=== PATIENT | female | born 1975 | race Caucasian/White ===

== ENCOUNTER 2016-12-04 08:13 | Emergency (ER) | payer MEDICAID, SELFPAY ==
--- NOTE | 2016-12-04 09:10 | ERRECORD ---
[facility] EMERGENCY RECORD HPI BACK (08:45 BPIC) CHIEF COMPLAINT: Patient presents for evaluation of pain, to the lower back. HISTORIAN: History provided by patient. MECHANISM OF INJURY: No apparent mechanism of injury. LOCATION: Symptoms are generalized. QUALITY: Pain is dull in nature. SEVERITY: Maximum severity of symptoms moderate, Currently symptoms are moderate. TIME COURSE: Gradual onset of symptoms. ASSOCIATED WITH: No associated symptoms. EXACERBATED BY: Patient's condition exacerbated by nothing. RELIEVED BY: Patient's condition relieved by nothing. RISK FACTORS: Risk factors reviewed. ROS (08:45 BPIC) CONSTITUTIONAL: Negative constitutional review of systems. EYES: Negative eye review of systems. ENT: Negative ears, nose, throat review of systems. CARDIOVASCULAR: Negative cardiovascular review of systems. RESPIRATORY: Negative respiratory review of systems. GI: Negative gastrointestinal review of systems. MUSCULOSKELETAL: see hpi. SKIN: Negative skin review of systems. PSYCHIATRIC: Negative psychiatric review of systems. NOTES: All other ROS is negative except as listed in HPI. PAST MEDICAL HISTORY MEDICAL HISTORY: No past medical history, No past medical history, Flu vaccine not up to date. (08:26 SCHI) FEMALE SURGICAL HISTORY: Surgical history of tubal ligation. (08:26 SCHI) PSYCHIATRIC HISTORY: Notes: DENIES, Notes: DENIES. (08:26 SCHI) SOCIAL HISTORY: Patient drinks socially, Patient denies drug use, Patient is a former tobacco user, smoked cigarettes, Patient quit smoking in the past year, Patient denies alcohol use, Patient denies drug use, Patient is a former tobacco user, smoked cigarettes, Patient quit smoking in the past year. (08:26 SCHI) NOTES: I have reviewed and agree with the PMH/PSxH/FamHx/SocHx obtained by the nurse. (08:45 BPIC) KNOWN ALLERGIES No Known Drug Allergies CURRENT MEDICATIONS (08:25 SCHI) None VITAL SIGNS (08:23 SCHI) VITAL SIGNS: BP: 107/67, Pulse: 64, Resp: 20, Temp: 98.3 (Oral), &a-1R&a+25V*p+0X*[id number]*c202B*c15G*c2P*p-0X&a-25V&a+1R Name: Jacquelin Emanuel Karen : 1975 F41 MedRec: [id number] AcctNum: [id number] Prepared: FriDec 04, 2016 13:46 by Interface Page 1 of 3 pMD [facility] EMERGENCY RECORD Pain: 9 (Constant), O2 sat: 98 on Room Air, Time: 12/04/2016 08:23. PHYSICAL EXAM (08:45 BPIC) CONSTITUTIONAL: Vital signs reviewed, Patient afebrile, Pulse normal, Blood pressure normal, Respiratory rate normal, Patient appears non toxic, Patient appears pain free, Patient alert and oriented to person, place and time. HEAD: Head exam included findings of head atraumatic, normocephalic. EYES: Eye exam included findings of eyelids normal to inspection, Pupils equally round and reactive to light, Extraocular muscles intact. ENT: ENT exam normal. NECK: Neck exam included findings of normal range of motion, Trachea midline. RESPIRATORY CHEST: Respiratory exam included findings of no respiratory distress, Breath sounds clear, Chest exam included findings of chest movement symmetrical, Chest expansion equal. CARDIOVASCULAR: Cardiovascular exam included findings of heart rate regular rate and rhythm, Heart sounds normal. BACK: Back exam, Back exam included findings of normal inspection, Tenderness, paraspinal to the lower back, Straight leg raise. LOWER EXTREMITY: Lower extremity exam included findings of inspection normal, Motor strength normal, Posterior tibial pulse normal. NEURO: Neuro exam findings include patient oriented to person, place and time, Speech normal. PSYCHIATRIC: Psychiatric exam included findings of patient oriented to person place and time, Normal affect. DOCTOR NOTES (08:45 BPIC) TEXT: I discussed the diagnosis with the patient prior to discharge. All questions were answered. There is no indication for admission currently and the patient will follow up with his primary care physician. Any pertinent labs or imaging was reviewed and dicussed with the patient. If any new or emergent symptoms occure, the patient will return to the emergency department. PROBLEM LIST No recorded problems DIAGNOSIS (08:45 BPIC) FINAL: PRIMARY: Low back pain. PRESCRIPTION (08:45 BPIC) Flexeril: TABLET : 5 mg : ORAL : Quantity: 5 Unit: mg Route: ORAL Schedule: every 8 hours PRN Dispense: 30 Unit: tab(s) May substitute. Refills: No Refills . &a-1R&a+25V*p+0X*f0186W*c202B*c15G*c2P*p-0X&a-25V&a+1R Name: Jacquelin Emanuel : 1975 F41 MedRec: [id number] AcctNum: [id number] Prepared: FriDec 04, 2016 13:46 by Interface Page 2 of 3 pMD [facility] EMERGENCY RECORD NOTES: No Refills. traMADol: TABLET : 50 mg : ORAL : Quantity: 50 Unit: mg Route: ORAL Schedule: every 6 hours PRN Dispense: 20 Unit: tab(s) May substitute. Refills: No Refills . NOTES: ^s=No Refills No Refills. DISPOSITION PATIENT: Disposition Type: Discharge, Disposition: *Discharge Home, Condition: Good. (08:45 BPIC) Patient left the department. (09:02 TRIST[facility]) Rojo: BPIC=MD Louie, Irwin HUDSON=SAV Malone, inda &a-1R&a+25V*p+0X*z3717H*c202B*c15G*c2P*p-0X&a-25V&a+1R Name: Jacquelin Emanuel : 1975 F41 MedRec: [id number] AcctNum: [id number] Prepared: FriDec 04, 2016 13:46 by Interface Page 3 of 3 pMD MTDD
--- NOTE | 2016-12-04 09:15 | PICIS ---
[facility] EMERGENCY RECORD TRIAGE (FriDec 04, 2016 08:24 SCHI) TRIAGE NOTES: LOWER BACK PAIN FOR 3 DAYS. (FriDec 04, 2016 08:24 SCHI) PATIENT: NAME: Jacquelin Emanuel, AGE: 41, GENDER: female, : Fri1975, TIME OF GREET: FriDec 04, 2016 08:13, PREFERRED LANGUAGE: Yi, ETHNICITY: Not or , FALL RISK: NO, ECODE BILLING MAP: [facility], SSN: [id number], Zip Code: [address], KG WEIGHT: 68.04, PHONE: , , , PERSON ID: [id number], PCP: DO Man Hillary. (FriDec 04, 2016 08:24 SCHI) COMPLAINT: LOWER BACK PAIN. (FriDec 04, 2016 08:24 SCHI) ADMISSION: URGENCY: 4 Non Urgent, ADMISSION SOURCE: Doctor's Office, TRANSPORT: Walk-in, BED: ED -03. (FriDec 04, 2016 08:24 SCHI) ASSESSMENT: Assessment: ALERT AND ORIENTED X 4, SKIN WARM AND DRY RESP EVEN AND UNLABORED,, Symptoms began 3 DAYS. (08:26 SCHI) PAIN: Patient complains of pain described as, aching, sharp, on a scale 0-10 patient rates pain as 9, Location RIGHT LOWER BACK, Pain is constant. (08:26 SCHI) TRIAGE SCREENING: Patient denies suicidal ideation, Patient denies presence of domestic violence. (08:26 SCHI) LMP: Last menstrual period: 11/26/2016. (08:26 SCHI) PROVIDERS: TRIAGE NURSE: Leslie Malone RN. (FriDec 04, 2016 08:24 SCHI) VITAL SIGNS: BP 107/67, Pulse 64, Resp 20, Temp 98.3, (Oral), Pain 9, (Constant), O2 Sat 98, on Room Air, Time 12/04/2016 08:23. (08:23 SCHI) KNOWN ALLERGIES No Known Drug Allergies CURRENT MEDICATIONS (08:25 SCHI) None VITAL SIGNS (08:23 SCHI) VITAL SIGNS: BP: 107/67, Pulse: 64, Resp: 20, Temp: 98.3 (Oral), Pain: 9 (Constant), O2 sat: 98 on Room Air, Time: 12/04/2016 08:23. NURSING ASSESSMENT: BACK (08:30 SCHI) CONSTITUTIONAL: Patient arrives ambulatory, Gait steady, History obtained from patient, Patient appears comfortable, Patient cooperative, Patient alert, Oriented to person, place and time, Skin warm, Skin dry, Skin normal in color, Mucous membranes pink, Mucous membranes moist, Patient is well-groomed, Patient complains of LOW BACK PAIN, DENIES INJURY OR URINARY PROBLEMS. PAIN: to the lower back, constant, on a scale 0-10 patient rates pain as 9, TOOK ALEEVE, IBUPROFEN YESTERDAY, Pain exacerbated by, posture change. BACK: Back assessment findings include tenderness to, &a-1R&a+25V*p+0X*l5995T*c202B*c15G*c2P*p-0X&a-25V&a+1R Name: Jacquelin Emanuel : 1975 F41 MedRec: [id number] AcctNum: [id number] Prepared: FriDec 04, 2016 13:53 by Interface Page 1 of 5 pMD [facility] EMERGENCY RECORD the right lower back. NOTES: Emotional support needed and given, Patient tolerated procedure well. SAFETY: Side rails up, Cart/Stretcher in lowest position, Hospital ID band on. NURSING PROCEDURE: DISCHARGE NOTE (09:00 SCHI) DISCHARGE: Patient discharged to home, ambulating without assistance, driving self, unaccompanied, Summary of Care printed/ provided, Patient requested and was provided an electronic copy of Discharge Instructions, Transition record given to patient, Discharge instructions given to patient, Simple or moderate discharge teaching performed, Prescriptions given and instructions on side effects given, Medication reconciliation form given, Above person(s) verbalized understanding of discharge instructions and follow-up care, Patient treated and evaluated by physician. BELONGINGS: Belongings and valuables with patient at time of discharge include:, Belongings remain with patient, Valuables remain with patient. NOTES: Emotional support needed and given, Patient tolerated procedure well. Notes: PT IMPROVED, PT ENCOURAGED TO RETURN TO ER WITH NEW OR WORSENING SYMPTOMS. SAFETY: Side rails up, Cart/Stretcher in lowest position, Family at bedside, Hospital ID band on. HPI BACK (08:45 BPIC) CHIEF COMPLAINT: Patient presents for evaluation of pain, to the lower back. HISTORIAN: History provided by patient. MECHANISM OF INJURY: No apparent mechanism of injury. LOCATION: Symptoms are generalized. QUALITY: Pain is dull in nature. SEVERITY: Maximum severity of symptoms moderate, Currently symptoms are moderate. TIME COURSE: Gradual onset of symptoms. ASSOCIATED WITH: No associated symptoms. EXACERBATED BY: Patient's condition exacerbated by nothing. RELIEVED BY: Patient's condition relieved by nothing. RISK FACTORS: Risk factors reviewed. ROS (08:45 BPIC) CONSTITUTIONAL: Negative constitutional review of systems. EYES: Negative eye review of systems. ENT: Negative ears, nose, throat review of systems. CARDIOVASCULAR: Negative cardiovascular review of systems. RESPIRATORY: Negative respiratory review of systems. GI: Negative gastrointestinal review of systems. MUSCULOSKELETAL: see hpi. SKIN: Negative skin review of systems. PSYCHIATRIC: Negative psychiatric review of systems. &a-1R&a+25V*p+0X*f4025M*c202B*c15G*c2P*p-0X&a-25V&a+1R Name: Jacquelin Emanuel : 1975 F41 MedRec: [id number] AcctNum: [id number] Prepared: FriDec 04, 2016 13:53 by Interface Page 2 of 5 pMD [facility] EMERGENCY RECORD NOTES: All other ROS is negative except as listed in HPI. PAST MEDICAL HISTORY MEDICAL HISTORY: No past medical history, No past medical history, Flu vaccine not up to date. (08:26 SCHI) FEMALE SURGICAL HISTORY: Surgical history of tubal ligation. (08:26 SCHI) PSYCHIATRIC HISTORY: Notes: DENIES, Notes: DENIES. (08:26 SCHI) SOCIAL HISTORY: Patient drinks socially, Patient denies drug use, Patient is a former tobacco user, smoked cigarettes, Patient quit smoking in the past year, Patient denies alcohol use, Patient denies drug use, Patient is a former tobacco user, smoked cigarettes, Patient quit smoking in the past year. (08:26 SCHI) NOTES: I have reviewed and agree with the PMH/PSxH/FamHx/SocHx obtained by the nurse. (08:45 BPIC) PHYSICAL EXAM (08:45 BPIC) CONSTITUTIONAL: Vital signs reviewed, Patient afebrile, Pulse normal, Blood pressure normal, Respiratory rate normal, Patient appears non toxic, Patient appears pain free, Patient alert and oriented to person, place and time. HEAD: Head exam included findings of head atraumatic, normocephalic. EYES: Eye exam included findings of eyelids normal to inspection, Pupils equally round and reactive to light, Extraocular muscles intact. ENT: ENT exam normal. NECK: Neck exam included findings of normal range of motion, Trachea midline. RESPIRATORY CHEST: Respiratory exam included findings of no respiratory distress, Breath sounds clear, Chest exam included findings of chest movement symmetrical, Chest expansion equal. CARDIOVASCULAR: Cardiovascular exam included findings of heart rate regular rate and rhythm, Heart sounds normal. BACK: Back exam, Back exam included findings of normal inspection, Tenderness, paraspinal to the lower back, Straight leg raise. LOWER EXTREMITY: Lower extremity exam included findings of inspection normal, Motor strength normal, Posterior tibial pulse normal. NEURO: Neuro exam findings include patient oriented to person, place and time, Speech normal. PSYCHIATRIC: Psychiatric exam included findings of patient oriented to person place and time, Normal affect. EVENTS TRANSFER: Triage to Emergency Main ED -03. (FriDec 04, 2016 08:24 SCHI) &a-1R&a+25V*p+0X*n1726R*c202B*c15G*c2P*p-0X&a-25V&a+1R Name: Jacquelin Emanuel : 1975 F41 MedRec: [id number] AcctNum: [id number] Prepared: FriDec 04, 2016 13:53 by Interface Page 3 of 5 pMD [facility] EMERGENCY RECORD Removed from Emergency Main ED -03. (09:02 SCHI) DOCTOR NOTES (08:45 BPIC) TEXT: I discussed the diagnosis with the patient prior to discharge. All questions were answered. There is no indication for admission currently and the patient will follow up with his primary care physician. Any pertinent labs or imaging was reviewed and dicussed with the patient. If any new or emergent symptoms occure, the patient will return to the emergency department. PROBLEM LIST No recorded problems DIAGNOSIS (08:45 BPIC) FINAL: PRIMARY: Low back pain. DISPOSITION PATIENT: Disposition Type: Discharge, Disposition: *Discharge Home, Condition: Good. (08:45 BPIC) Patient left the department. (09:02 SCHI) INSTRUCTION (08:45 BPIC) DISCHARGE: LOW BACK PAIN GENERAL. FOLLOWUP: DO Man Hillary, [facility], [address] [place] [id number], . SPECIAL: Please follow up with your physician in the next 2-3 days. Return to the Emergency Room with any worsening of your symptoms or other emergent concerns. Thank you for choosing [facility] Emergency Department for your care today, and God Bless You!. PRESCRIPTION (08:45 BPIC) Flexeril: TABLET : 5 mg : ORAL : Quantity: 5 Unit: mg Route: ORAL Schedule: every 8 hours PRN Dispense: 30 Unit: tab(s) May substitute. Refills: No Refills . NOTES: No Refills. traMADol: TABLET : 50 mg : ORAL : Quantity: 50 Unit: mg Route: ORAL Schedule: every 6 hours PRN Dispense: 20 Unit: tab(s) May substitute. Refills: No Refills . NOTES: ^s=No Refills No Refills. [facility] (09:01 [facility] *DISCHARGE INSTRUCTIONS RECEIPT: Image captured from scanner. *SUPPLY CHARGE SHEET: Image captured from scanner. ADMIN DIGITAL SIGNATURE: SAV Malone, Leslie. (09:02 [facility]) &a-1R&a+25V*p+0X*e5705C*c202B*c15G*c2P*p-0X&a-25V&a+1R Name: Jacquelin Emanuel : 1975 F41 MedRec: [id number] AcctNum: [id number] Prepared: FriDec 04, 2016 13:53 by Interface Page 4 of 5 pMD [facility] EMERGENCY RECORD MD Palma Bryan. (13:39 [facility]) Rojo: BPIC=MD Palma Bryan SCHI=SAV Malone Slinda &a-1R&a+25V*p+0X*l5785D*c202B*c15G*c2P*p-0X&a-25V&a+1R Name: Jacquelin Emanuel : 1975 F41 MedRec: [id number] AcctNum: [id number] Prepared: Crystal Dec 04, 2016 13:53 by Interface Page 5 of 5 pMD MTDD
== END 2016-12-04 09:00 | disposition home or self-care (01) ==
LOC: MADERS 08:13
DX: M54.5 Low back pain (principal)
CPT/HCPCS: 99284

== ENCOUNTER 2016-12-05 11:17 | Emergency (ER) | payer MEDICAID, SELFPAY ==
[2016-12-05 11:49] LABS: Bilirubin Negative (Negative); Blood, Urine Negative (Negative); Clarity Clear (Clear); Glucose, Urine (Dipstick) Negative (Negative); Leukocyte Negative (Negative); Nitrite Negative (Negative); Protein, Urine (Dipstick) Negative (Neg-Trace); Specific Gravity, Urine 1.015 (1.005-1.030); Urobilinogen 0.2 mg/dL (0.2-1.0); pH, Urine 7.5 (5.0-9.0)
[2016-12-05 11:50] LABS: Pregnancy Test - Urine (BHCG) NEGATIVE (NEGATIVE); Pregu Control Background? CLEAR/WHITE (CLR/WHITE); Pregu Control Bar Appear? YES (CONTROL BAR); Specific Gravity 1.015 (1.002-1.036)
[2016-12-05 12:26] LABS: #Eosinphils 0.2 thou/uL (0.0-0.7); #Lymphocytes 1.7 thou/uL (1.20-3.40); #Monocytes 0.5 thou/uL (0.11-0.59); #Neutrophils 6.1 thou/uL (1.40-6.50); %Basophils 0.5 % (0.0-1.0); %Eosinophils 1.9 % (0.0-10.0); %Lymphocytes 19.7 % (21.0-51.0); %Monocytes 5.4 % (0.0-10.0); %Neutrophils 72.5 % (42.0-75.0); Hemoglobin 12.9 g/dL (12.0-16.0); Mean Corpuscular HGB CONC 31.6 g/dL (32.0-36.0); Mean Corpuscular Hemoglobin 30.4 pg (27.0-31.0); Mean Corpuscular Volume 96.1 fl (81.0-99.0); Platelet Count 278 thou/uL (130-400); RBC Distribution Width 13.2 % (11.5-14.5); Red Blood Cell (RBC) Count 4.26 mill/uL (4.20-5.40); White Blood Cell (WBC) Count 8.4 thou/uL (4.8-10.8)
[2016-12-05] MEDS ORDERED: Ondansetron HCl/PF 4 MG/2 ML Vial ONE (12:35)
[2016-12-05] MEDS ORDERED: Ketorolac Tromethamine 30 MG/ML VIAL ONE (12:35)
[2016-12-05 12:46] LABS: ALT (SGPT) 7 U/L (0-55); AST (SGOT) 9 U/L (5-34); Albumin 4.4 g/dL (3.5-5.0); Alkaline Phosphatase 55 U/L (40-150); Anion Gap 14 mmol/L (10-20); BUN (Urea Nitrogen) 18 mg/dL (7.0-18.7); Bilirubin, Total Less than 0.3 mg/dL (0.2-1.2); Calc. Creatinine Clearance 0 mL/min (70-130); Calcium 9.6 mg/dL (7.8-10.44); Carbon Dioxide 30 mmol/L (22-29); Chloride 103 mmol/L (98-107); Estimated GFR-MDRD 68; Globulin 2.4 g/dL (2.4-3.5); Glucose 88 mg/dL (70-105); Potassium 4.5 mmol/L (3.5-5.1); Protein, Total 6.8 g/dL (6.0-8.3); Sodium 142 mmol/L (136-145)
[2016-12-05 12:47] LABS: Amylase 42 U/L (25-125); CRP (Inflammatory) Less than 0.50 mg/dL (= or < 0.5); Lipase 24 U/L (8-78)
--- NOTE | 2016-12-05 13:41 | CT ---
CT ABDOMEN AND PELVIS WITH IV AND ORAL CONTRAST: History: Right lower quadrant pain. FINDINGS: The lung bases are clear. A circumscribed 1.6 cm oval low density lesion within the posterior dome of the liver has an essentric hyperdense focus and is favored to represent a small hemangioma. The spleen, kidneys, adrenal glands and pancreas have a normal CT appearance. The appendix is not infla med. There is no evidence of bowel obstruction. Urinary bladder is unremarkable. Follicles arise from each ovary. IMPRESSION: No significant abnormalities are demonstrated. POS: [facility]
--- NOTE | 2016-12-05 14:03 | RAD ---
AP CHEST: History: 41-year-old female with abdominal pain. FINDINGS: PA radiograph of the chest obtained. The lungs are well aerated. No evidence of active intrathorac ic disease seen. No evidence of effusions, pneumonia or pneumothorax seen. IMPRESSION: Unremarkable PA radiograph of the chest. POS: [facility]
--- NOTE | 2016-12-05 15:07 | ERRECORD ---
[facility] EMERGENCY RECORD HPI ABDOMINAL PAIN (12:09 LLDO) CHIEF COMPLAINTS: Patient presents for evaluation of abdominal pain, Patient presents for evaluation of started having r lower back pain 3 days ago. no clear injury (works at [employer]). this morning started having RLQ pain and some nausea. no fever. had some diarrhea 2 days ago but not since. only abdo surgery was tubal. ua this morning was completely negative. HISTORIAN: History provided by patient, drove herself here today to see pcp who sent her to the ed. pcp requested w/u and ct. LOCATION FEMALE: Symptoms are localized. QUALITY: Pain is dull in nature, described as aching. SEVERITY: Maximum severity of symptoms moderate, Currently symptoms are moderate. TIME COURSE: Patient unable to describe onset of symptoms, Symptoms are intermittent. ASSOCIATED WITH FEMALE: No associated recent antibiotic use, No associated bright red blood per rectum, Associated with diarrhea, No associated fever, No associated hematemesis, No associated hematuria, Associated with loss of appetite, No associated melena, No associated nausea, No associated night sweats, No associated trauma, No associated recent travel, No associated urinary tract infection signs or symptoms, No associated vomiting. RELIEVED BY: Patient's condition relieved by nothing. EXACERBATED BY: Patient's condition exacerbated by movement, Patient's condition exacerbated by PALPATION. RISK FACTORS FEMALE: No ectopic risk factors present, No abdominal aortic aneurysm risk factors, No coronary artery disease risk factors. ROS CONSTITUTIONAL: Historian reports fatigue. (12:15 LLDO) EYES: Negative eye review of systems, Historian denies eye pain, denies eye redness, denies eye discharge. (12:19 LLDO) ENT: Negative ears, nose, throat review of systems, Historian denies epistaxis, denies rhinorrhea, denies sinus pain, denies sore throat. (12:19 LLDO) CARDIOVASCULAR: Negative cardiovascular review of systems, Historian denies chest pain, no radiation, Historian denies diaphoresis, denies syncope. (12:19 LLDO) RESPIRATORY: Negative respiratory review of systems, Historian denies cough, denies shortness of breath, denies sputum. (12:19 LLDO) GI: Historian reports abdominal pain, denies anorexia, denies appetite changes, denies constipation, reports diarrhea, denies flatulence, denies hematemesis, denies hematochezia, denies jaundice, denies melena, denies nausea, denies stool changes, denies vomiting. (12:15 LLDO) GENITOURINARY FEMALE: Negative genitourinary review of systems, Historian denies dysuria, denies frequency, denies urgency. (12:19 LLDO) MUSCULOSKELETAL: Negative musculoskeletal review of systems, &a-1R&a+25V*p+0X*[id number]*c202B*c15G*c2P*p-0X&a-25V&a+1R Name: Jacquelin Emanuel : 1975 F41 MedRec: [id number] AcctNum: [id number] Prepared: Bhavna Dec 05, 2016 23:45 by Interface Page 1 of 4 pMD [facility] EMERGENCY RECORD Historian denies arthralgias, denies back pain, denies injury, denies myalgias, denies neck pain. (12:19 LLDO) SKIN: Negative skin review of systems, Historian denies cellulitis, denies rash, denies skin changes, denies skin lesions. (12:19 LLDO) NEUROLOGIC: Negative neurologic review of systems, Historian denies confusion, denies dizziness, denies focal weakness, denies mental status changes. (12:19 LLDO) HEMO/LYMPHATIC: Normal hematologic/lymphatic system review, Historian denies abnormal blood clotting, denies gum bleeding, denies petechiae. (12:19 LLDO) ALLERGIC/IMMUNOLOGIC: Normal allergy/immunologic system review, Historian denies eczema, denies environmental allergies, denies food allergies. (12:19 LLDO) PSYCHIATRIC: Negative psychiatric review of systems, Historian denies alcohol abuse, denies anxiety, denies depression, denies drug abuse, denies hallucinations. (12:19 LLDO) NOTES: All systems reviewed, negative except as described above. (12:15 LLDO) PAST MEDICAL HISTORY MEDICAL HISTORY: No past medical history, No past medical history, Flu vaccine not up to date. (11:35 SCHI) FEMALE SURGICAL HISTORY: Surgical history of tubal ligation. (11:35 SCHI) PSYCHIATRIC HISTORY: Notes: DENIES, Notes: DENIES. (11:35 SCHI) SOCIAL HISTORY: Patient drinks socially, Patient denies drug use, Patient is a former tobacco user, smoked cigarettes, Patient quit smoking in the past year, Patient denies alcohol use, Patient denies drug use, Patient is a former tobacco user, smoked cigarettes, Patient quit smoking in the past year. (11:35 SCHI) NOTES: Nursing records reviewed, Agree with nursing records, Medication list reviewed. (12:19 LLDO) KNOWN ALLERGIES No Known Drug Allergies CURRENT MEDICATIONS (11:32 SCHI) Flexeril: TABLET : Strength - 5 mg : ORAL Patient Dose: 5 mg Oral every 8 hours PRN. traMADol: TABLET : Strength - 50 mg : ORAL Patient Dose: 50 mg Oral every 6 hours PRN. VITAL SIGNS VITAL SIGNS: BP: 120/76, Pulse: 76, Resp: 20, Temp: 98.1 (Tympanic), O2 sat: 97 on Room Air, Time: 12/05/2016 11:29. (11:29 SCHI) &a-1R&a+25V*p+0X*[id number]*c202B*c15G*c2P*p-0X&a-25V&a+1R Name: Jacquelin Emanuel : 1975 F41 MedRec: [id number] AcctNum: [id number] Prepared: Bhavna Dec 05, 2016 23:45 by Interface Page 2 of 4 pMD [facility] EMERGENCY RECORD BP: 129/88, Pulse: 62, O2 sat: 100 on Room Air, Time: 12/05/2016 12:45. (12:45 SCHI) BP: 133/80, Pulse: 56, Resp: 20, O2 sat: 100 on Room Air, Time: 12/05/2016 13:15. (13:15 SCHI) BP: 115/77, Pulse: 62, Resp: 18, O2 sat: 100 on Room Air, Time: 12/05/2016 13:35. (13:35 SCHI) Pain: 8 (Constant), Time: 12/05/2016 11:30. (11:30 SCHI) Pain: 8, Time: 12/05/2016 13:58. (13:58 SCHI) PHYSICAL EXAM CONSTITUTIONAL: Vital Signs Reviewed, Patient afebrile, Pulse normal, Blood pressure normal, Respiratory rate normal, Patient appears, uncomfortable, Patient appears, in moderate pain distress, Patient alert and oriented to person, place and time, Nursing notes reviewed. (12:16 LLDO) HEAD: Head exam normal, Head exam included findings of head atraumatic, normocephalic. (12:19 LLDO) EYES: Eye exam normal, Eye exam included findings of eyelids normal to inspection, Pupils equally round and reactive to light, Extraocular muscles intact. (12:19 LLDO) ENT: ENT exam normal, Ear exam normal, Nose exam normal. (12:19 LLDO) NECK: Neck exam normal, Neck exam included findings of normal range of motion, Trachea midline, no meningeal signs, no tenderness. (12:19 LLDO) RESPIRATORY CHEST: Respiratory exam included findings of no respiratory distress, Breath sounds clear, No wheezing, Chest exam included findings of chest movement symmetrical, Chest expansion equal, no tenderness. (12:16 LLDO) CARDIOVASCULAR: Cardiovascular exam included findings of heart rate regular rate and rhythm, Heart sounds normal, Point of maximal impulse normal. (12:16 LLDO) ABDOMEN FEMALE: Abdominal exam included findings of abdomen tender, to the right lower quadrant, mild intensity, Bowel sounds normal, Liver normal, Spleen normal, no distension, no mass, no pulsatile masses, no peritoneal signs, Rovsing's sign absent, no inguinal hernia, no femoral hernia, no umbilical hernia, no ventral hernia, no incisional hernia. (12:16 LLDO) BACK: Back exam normal, Back exam included findings of normal inspection, range of motion normal. (12:19 LLDO) UPPER EXTREMITY: Upper extremity exam normal, Upper extremity exam included findings of inspection normal, Range of motion normal. (12:19 LLDO) LOWER EXTREMITY: Lower extremity exam normal, Lower extremity exam included findings of inspection normal, Range of motion normal. (12:19 LLDO) NEURO: Neuro exam normal, Neuro exam findings include patient oriented to person, place and time, Speech normal, John coma scale 15. (12:19 LLDO) &a-1R&a+25V*p+0X*[id number]*c202B*c15G*c2P*p-0X&a-25V&a+1R Name: Jacquelin Emanuel : 1975 F41 MedRec: [id number] AcctNum: [id number] Prepared: Bhavna Dec 05, 2016 23:45 by Interface Page 3 of 4 pMD [facility] EMERGENCY RECORD SKIN: Skin exam normal, Skin exam included findings of skin warm, dry, and normal in color, no rash. (12:19 LLDO) PSYCHIATRIC: Psychiatric exam normal, Psychiatric exam included findings of patient oriented to person place and time, Normal affect. (12:19 LLDO) MEDICATION ADMINISTRATION SUMMARY Drug Name: Zofran intravenous, Dose Ordered: 8 mg, Route: IV Push, Status: Given, Time: 12:42 12/05/2016, Drug Name: Bentyl oral, Dose Ordered: 20 mg, Route: Oral, Status: Given, Time: 12:42 12/05/2016, Drug Name: Toradol injection, Dose Ordered: 30 mg, Route: IV Push, Status: Given, Time: 12:42 12/05/2016, Detailed record available in Medication Service section. DOCTOR NOTES (14:17 LLDO) TEXT: ct abdo and general w/u all totally neg. PROBLEM LIST No recorded problems DIAGNOSIS (14:19 LLDO) FINAL: PRIMARY: Lower abdominal pain, ADDITIONAL: Low back pain. PRESCRIPTION (14:21 LLDO) Tylenol-Codeine #3: TABLET : 300 mg-30 mg : ORAL : Quantity: 1-2 Unit: tab(s) Route: ORAL Schedule: every 4 hours prn Dispense: 24 Unit: tab(s) May substitute. Refills: No Refills . NOTES: No Refills. DISPOSITION PATIENT: Disposition Type: Discharge, Disposition: *Discharge Home. (14:19 LLDO) Patient left the department. (14:36 SCHI) Rojo: LLDO=MD Jose, Jaden SCHI=SAV Malone, Slinda &a-1R&a+25V*p+0X*[id number]*c202B*c15G*c2P*p-0X&a-25V&a+1R Name: Jacquelin Emanuel : 1975 F41 MedRec: [id number] AcctNum: [id number] Prepared: Bhavna Dec 05, 2016 23:45 by Interface Page 4 of 4 pMD [facility]
--- NOTE | 2016-12-05 15:21 | PICIS ---
[facility] EMERGENCY RECORD TRIAGE (FriDec 05, 2016 11:31 SCHI) TRIAGE NOTES: BACK PAIN AND RT LOWER QUAD PAIN, WAS SENT OVER FROM CLINIC. (FriDec 05, 2016 11:31 SCHI) PATIENT: NAME: Jacquelin Emanuel, AGE: 41, GENDER: female, : Fri1975, TIME OF GREET: FriDec 05, 2016 11:17, PREFERRED LANGUAGE: Lao, ETHNICITY: Not or , FALL RISK: NO, ECODE BILLING MAP: [facility] ER, SSN: [id number], Zip Code: [address], KG WEIGHT: 69.85, PHONE: , , , PERSON ID: [id number], PCP: DO Man Hillary. (FriDec 05, 2016 11:31 SCHI) COMPLAINT: BACK PAINS. (FriDec 05, 2016 11:31 SCHI) ADMISSION: URGENCY: 3 Urgent, ADMISSION SOURCE: Home, TRANSPORT: Walk-in, BED: ED -03. (FriDec 05, 2016 11:31 SCHI) ASSESSMENT: Assessment: ALERT AND ORIENTED X 4, SKIN WARM AND DRY RESP EVEN AND UNLABORED,, Symptoms began 3 DAYS OR MORE. (11:35 SCHI) PAIN: Patient complains of pain described as, on a scale 0-10 patient rates pain as 10, Location LOW BACK. (11:35 SCHI) TRIAGE SCREENING: Patient denies suicidal ideation, Patient denies presence of domestic violence. (11:35 SCHI) PROVIDERS: TRIAGE NURSE: Leslie Malone RN. (FriDec 05, 2016 11:31 SCHI) VITAL SIGNS: BP 120/76, Pulse 76, Resp 20, Temp 98.1, (Tympanic), O2 Sat 97, on Room Air, Time 12/05/2016 11:29. (11:29 SCHI) PREVIOUS VISIT ALLERGIES: No Known Drug Allergies. (FriDec 05, 2016 11:31 SCHI) No Known Drug Allergies. (11:35 SCHI) KNOWN ALLERGIES No Known Drug Allergies CURRENT MEDICATIONS (11:32 SCHI) Flexeril: TABLET : Strength - 5 mg : ORAL Patient Dose: 5 mg Oral every 8 hours PRN. traMADol: TABLET : Strength - 50 mg : ORAL Patient Dose: 50 mg Oral every 6 hours PRN. VITAL SIGNS VITAL SIGNS: BP: 120/76, Pulse: 76, Resp: 20, Temp: 98.1 (Tympanic), O2 sat: 97 on Room Air, Time: 12/05/2016 11:29. (11:29 SCHI) BP: 129/88, Pulse: 62, O2 sat: 100 on Room Air, Time: 12/05/2016 12:45. (12:45 SCHI) BP: 133/80, Pulse: 56, Resp: 20, O2 sat: 100 on Room Air, Time: 12/05/2016 13:15. (13:15 SCHI) BP: 115/77, Pulse: 62, Resp: 18, O2 sat: 100 on Room Air, Time: 12/05/2016 13:35. (13:35 SCHI) Pain: 8 (Constant), Time: 12/05/2016 11:30. (11:30 SCHI) &a-1R&a+25V*p+0X*j4304L*c202B*c15G*c2P*p-0X&a-25V&a+1R Name: Jacquelin Emanuel : 1975 F41 MedRec: [id number] AcctNum: [id number] Prepared: Bhavna Dec 05, 2016 23:51 by Interface Page 1 of 11 pMD [facility] EMERGENCY RECORD Pain: 8, Time: 12/05/2016 13:58. (13:58 SCHI) NURSING ASSESSMENT: BACK (11:47 SCHI) CONSTITUTIONAL: Patient arrives ambulatory, Gait steady, History obtained from patient, Patient appears comfortable, Patient cooperative, Patient alert, Oriented to person, place and time, Skin warm, Skin dry, Skin normal in color, Mucous membranes pink, Mucous membranes moist, Patient is well-groomed, Patient complains of LOW BACK PAIN. PAIN: aching pain, to the lower back, RT LOWER QUAD, constant, on a scale 0-10 patient rates pain as 10. BACK: Back assessment findings include tenderness to, bilateral lower back. NOTES: Emotional support needed and given, Patient tolerated procedure well. SAFETY: Side rails up, Cart/Stretcher in lowest position, Hospital ID band on. NURSING PROCEDURE: DISCHARGE NOTE (14:30 SCHI) DISCHARGE: Patient discharged to home, ambulating without assistance, driving self, unaccompanied, Summary of Care printed/ provided, Patient requested and was provided an electronic copy of Discharge Instructions, Transition record given to patient, Discharge instructions given to patient, Simple or moderate discharge teaching performed, Prescriptions given and instructions on side effects given, Medication reconciliation form given, Above person(s) verbalized understanding of discharge instructions and follow-up care, Patient treated and evaluated by physician. BELONGINGS: Belongings and valuables with patient at time of discharge include:, Belongings remain with patient, Valuables remain with patient. NOTES: Emotional support needed and given, Patient tolerated procedure well. Notes: PT IMPROVED, PT ENCOURAGED TO RETURN TO ER WITH NEW OR WORSENING SYMPTOMS. SAFETY: Side rails up, Cart/Stretcher in lowest position, Family at bedside, Hospital ID band on. NURSING PROCEDURE: IV PATIENT IDENITIFIER: Patient actively involved in identification process, Patient's identity verified by patient stating name, Patient's identity verified by patient stating date, Patient's identity verified by hospital ID bracelet. (12:00 SCHI) IV SITE 1: IV therapy indicated for hydration, IV therapy indicated for medication administration, IV established, to the right forearm, using a 20 gauge catheter, in one attempt, IV site prepped with chloraprep, Saline lock established, Flushed with normal saline (mls): 10. (12:00 SCHI) FOLLOW-UP SITE 1: IV discontinued, due to patient being &a-1R&a+25V*p+0X*m0748L*c202B*c15G*c2P*p-0X&a-25V&a+1R Name: Jacquelin Emanuel : 1975 F41 MedRec: [id number] AcctNum: [id number] Prepared: [facility] Dec 05, 2016 23:51 by Interface Page 2 of 11 pMD [facility] EMERGENCY RECORD discharged, catheter intact. (14:25 SCHI) NURSING PROCEDURE: NURSE NOTES (13:02 SCHI) NURSES NOTES: Patient assisted to bathroom with steady gait. NURSING PROCEDURE: TRANSPORT TO [facility] PATIENT IDENTIFIER: Patient actively involved in identification process, Patient's identity verified by patient stating name, Patient's identity verified by hospital ID bracelet. (13:11 LWAL) TRANSPORT TO TESTS: Patient transported to CT scan, via wheelchair, Accompanied by x-ray certified composites technician, Notes: pt to drink oral contrast for her exam. (13:11 LWAL) FOLLOW-UP: After procedure, patient returned to emergency department. (13:20 SCHI) ORDER DETAILS Order Name: Amylase, Status: Active, Time: 12:08 12/05/2016, User: LL, - Ordered for: MD Garcia Lloyd, - Entered by: MD Garcia Lloyd - [facility] Dec 05, 2016 12:08, - Quantity: 1, Order Name: CBC with Differential, Status: Active, Time: 12:08 12/05/2016, User: LLDO, - Ordered for: MD Garcia Lloyd, - Entered by: MD Garcia Lloyd - [facility] Dec 05, 2016 12:08, - Quantity: 1, Order Name: Comprehensive Metabolic Panel, Status: Active, Time: 12:08 12/05/2016, User: LLDO, - Ordered for: MD Garcia Lloyd, - Entered by: MD Garcia Lloyd - [facility] Dec 05, 2016 12:08, - Quantity: 1, Order Name: CRP (Inflamatory), Status: Active, Time: 12:08 12/05/2016, User: LLDO, - Ordered for: MD Garcia Lloyd, - Entered by: MD Garcia Lloyd - [facility] Dec 05, 2016 12:08, - Quantity: 1, Order Name: CT Appendix Protocol, Status: Active, Time: 12:08 12/05/2016, User: LLDO, - Ordered for: MD Garcia Lloyd, - Entered by: MD Garcia Lloyd - [facility] Dec 05, 2016 12:08, - Quantity: 1, Order Name: Culture, Urine, Status: Active, Time: 11:42 12/05/2016, User: SCHI, - Ordered for: MD Garcia Lloyd, - Entered by: SAV Malone, Leslie [facility] Dec 05, 2016 11:42, - Quantity: 1, Order Name: Lipase, Status: Active, Time: 12:08 12/05/2016, User: SHANT, - Ordered for: MD Garcia Lloyd, &a-1R&a+25V*p+0X*n3696P*c202B*c15G*c2P*p-0X&a-25V&a+1R Name: Jacquelin Emanuel : 1975 F41 MedRec: [id number] AcctNum: [id number] Prepared: FriDec 05, 2016 23:51 by Interface Page 3 of 11 D [facility] EMERGENCY RECORD - Entered by: MD Garcia Lloyd - Bhavna Dec 05, 2016 12:08, - Quantity: 1, Order Name: Test, Urine (CG), Status: Active, Time: 11:42 12/05/2016, User: TRISTAN, - Ordered for: MD Garcia Lloyd, - Entered by: SAV Malone, Leslie [facility] Dec 05, 2016 11:42, - Quantity: 1, Order Name: SALINE LOCK, Status: Done, Time: 12:12 12/05/2016, User: TRISTAN, - Ordered for: MD Garcia Lloyd, - Entered by: MD Garcia Lloyd - [facility] Dec 05, 2016 12:08, - Quantity: 1, Order Name: Urinalysis w/ Rflx Microscopic, Status: Active, Time: 11:42 12/05/2016, User: TRISTAN, - Ordered for: MD Garcia Lloyd, - Entered by: SAV Malone, [facility] Dec 05, 2016 11:42, - Quantity: 1, Order Name: XR Chest 1 View Portable, Status: Active, Time: 12:08 12/05/2016, User: SHANT, - Ordered for: MD Garcia Lloyd, - Entered by: MD Garcia Lloyd - Bhavna Dec 05, 2016 12:08, - Quantity: 1. MEDICATION ADMINISTRATION SUMMARY Drug Name: Zofran intravenous, Dose Ordered: 8 mg, Route: IV Push, Status: Given, Time: 12:42 12/05/2016, Drug Name: Bentyl oral, Dose Ordered: 20 mg, Route: Oral, Status: Given, Time: 12:42 12/05/2016, Drug Name: Toradol injection, Dose Ordered: 30 mg, Route: IV Push, Status: Given, Time: 12:42 12/05/2016, Detailed record available in Medication Service section. MEDICATION SERVICE (12:42 DO) Bentyl oral: Order: Bentyl oral (dicyclomine HCl) - Dose: 20 mg : Oral Schedule: Now Ordered by: Jaden Garcia MD Entered by: Jaden Garcia MD [facility] Dec 05, 2016 12:21 , Acknowledged by: Leslie Malone RN [facility] Dec 05, 2016 12:34 Documented as given by: Leslie Malone RN [facility] Dec 05, 2016 12:42 Patient, Medication, Dose, Route and Time verified prior to administration. Site: Medication administered P.O., Correct patient, time, route, dose and medication confirmed prior to administration, Patient advised of actions and side-effects prior to administration, Allergies confirmed and medications reviewed prior to administration. Toradol injection: Order: Toradol injection (ketorolac tromethamine) - Dose: 30 mg : IV Push Schedule: Now &a-1R&a+25V*p+0X*n5896S*c202B*c15G*c2P*p-0X&a-25V&a+1R Name: Jacquelin Emanuel : 1975 F41 MedRec: [id number] AcctNum: [id number] Prepared: FriDec 05, 2016 23:51 by Interface Page 4 of 11 [facility] EMERGENCY RECORD Ordered by: Jaden Garcia MD Entered by: Jaden Garcia MD [facility] Dec 05, 2016 12:20 , Acknowledged by: Leslie Malone RN [facility] Dec 05, 2016 12:33 Documented as given by: Leslie Malone RN [facility] Dec 05, 2016 12:42 Patient, Medication, Dose, Route and Time verified prior to administration. IV SITE #1 IVP, subsequent different medication, Catheter placement confirmed via flush prior to administration, IV site without signs or symptoms of infiltration during medication administration, No swelling during administration, No drainage during administration, IV flushed after administration, Correct patient, time, route, dose and medication confirmed prior to administration, Patient advised of actions and side-effects prior to administration, Allergies confirmed and medications reviewed prior to administration. Zofran intravenous: Order: Zofran intravenous (ondansetron HCl) - Dose: 8 mg : IV Push Schedule: Now Ordered by: Jaden Garcia MD Entered by: Jaden Garcia MD [facility] Dec 05, 2016 12:20 , Acknowledged by: Leslie Malone RN [facility] Dec 05, 2016 12:33 Documented as given by: Leslie Malone RN [facility] Dec 05, 2016 12:42 Patient, Medication, Dose, Route and Time verified prior to administration. IV SITE #1 IVP, initial medication, Catheter placement confirmed via flush prior to administration, IV site without signs or symptoms of infiltration during medication administration, No swelling during administration, No drainage during administration, IV flushed after administration, Correct patient, time, route, dose and medication confirmed prior to administration, Patient advised of actions and side-effects prior to administration, Allergies confirmed and medications reviewed prior to administration. HPI ABDOMINAL PAIN (12:09 LLDO) CHIEF COMPLAINTS: Patient presents for evaluation of abdominal pain, Patient presents for evaluation of started having r lower back pain 3 days ago. no clear injury (works at [employer]). this morning started having RLQ pain and some nausea. no fever. had some diarrhea 2 days ago but not since. only abdo surgery was tubal. ua this morning was completely negative. HISTORIAN: History provided by patient, drove herself here today to see pcp who sent her to the ed. pcp requested w/u and ct. LOCATION FEMALE: Symptoms are localized. QUALITY: Pain is dull in nature, described as aching. SEVERITY: Maximum severity of symptoms moderate, Currently symptoms are moderate. TIME COURSE: Patient unable to describe onset of symptoms, Symptoms are intermittent. ASSOCIATED WITH FEMALE: No associated recent antibiotic use, No associated bright red blood per rectum, Associated with diarrhea, No associated fever, No associated hematemesis, No associated hematuria, &a-1R&a+25V*p+0X*i1954I*c202B*c15G*c2P*p-0X&a-25V&a+1R Name: Jacquelin Emanuel : 1975 F41 MedRec: [id number] AcctNum: [id number] Prepared: Bhavna Dec 05, 2016 23:51 by Interface Page 5 of 11 pMD [facility] EMERGENCY RECORD Associated with loss of appetite, No associated melena, No associated nausea, No associated night sweats, No associated trauma, No associated recent travel, No associated urinary tract infection signs or symptoms, No associated vomiting. RELIEVED BY: Patient's condition relieved by nothing. EXACERBATED BY: Patient's condition exacerbated by movement, Patient's condition exacerbated by PALPATION. RISK FACTORS FEMALE: No ectopic risk factors present, No abdominal aortic aneurysm risk factors, No coronary artery disease risk factors. ROS CONSTITUTIONAL: Historian reports fatigue. (12:15 LLDO) EYES: Negative eye review of systems, Historian denies eye pain, denies eye redness, denies eye discharge. (12:19 LLDO) ENT: Negative ears, nose, throat review of systems, Historian denies epistaxis, denies rhinorrhea, denies sinus pain, denies sore throat. (12:19 LLDO) CARDIOVASCULAR: Negative cardiovascular review of systems, Historian denies chest pain, no radiation, Historian denies diaphoresis, denies syncope. (12:19 LLDO) RESPIRATORY: Negative respiratory review of systems, Historian denies cough, denies shortness of breath, denies sputum. (12:19 LLDO) GI: Historian reports abdominal pain, denies anorexia, denies appetite changes, denies constipation, reports diarrhea, denies flatulence, denies hematemesis, denies hematochezia, denies jaundice, denies melena, denies nausea, denies stool changes, denies vomiting. (12:15 LLDO) GENITOURINARY FEMALE: Negative genitourinary review of systems, Historian denies dysuria, denies frequency, denies urgency. (12:19 LLDO) MUSCULOSKELETAL: Negative musculoskeletal review of systems, Historian denies arthralgias, denies back pain, denies injury, denies myalgias, denies neck pain. (12:19 LLDO) SKIN: Negative skin review of systems, Historian denies cellulitis, denies rash, denies skin changes, denies skin lesions. (12:19 LLDO) NEUROLOGIC: Negative neurologic review of systems, Historian denies confusion, denies dizziness, denies focal weakness, denies mental status changes. (12:19 LLDO) HEMO/LYMPHATIC: Normal hematologic/lymphatic system review, Historian denies abnormal blood clotting, denies gum bleeding, denies petechiae. (12:19 LLDO) ALLERGIC/IMMUNOLOGIC: Normal allergy/immunologic system review, Historian denies eczema, denies environmental allergies, denies food allergies. (12:19 LLDO) PSYCHIATRIC: Negative psychiatric review of systems, Historian denies alcohol abuse, denies anxiety, denies depression, denies drug abuse, denies hallucinations. (12:19 LLDO) NOTES: All systems reviewed, negative except as described above. &a-1R&a+25V*p+0X*m9343P*c202B*c15G*c2P*p-0X&a-25V&a+1R Name: Jacquelin Emanuel : 1975 F41 MedRec: [id number] AcctNum: [id number] Prepared: Bhavna Dec 05, 2016 23:51 by Interface Page 6 of 11 pMD [facility] EMERGENCY RECORD (12:15 LLDO) PAST MEDICAL HISTORY MEDICAL HISTORY: No past medical history, No past medical history, Flu vaccine not up to date. (11:35 SCHI) FEMALE SURGICAL HISTORY: Surgical history of tubal ligation. (11:35 SCHI) PSYCHIATRIC HISTORY: Notes: DENIES, Notes: DENIES. (11:35 SCHI) SOCIAL HISTORY: Patient drinks socially, Patient denies drug use, Patient is a former tobacco user, smoked cigarettes, Patient quit smoking in the past year, Patient denies alcohol use, Patient denies drug use, Patient is a former tobacco user, smoked cigarettes, Patient quit smoking in the past year. (11:35 SCHI) NOTES: Nursing records reviewed, Agree with nursing records, Medication list reviewed. (12:19 LLDO) PHYSICAL EXAM CONSTITUTIONAL: Vital Signs Reviewed, Patient afebrile, Pulse normal, Blood pressure normal, Respiratory rate normal, Patient appears, uncomfortable, Patient appears, in moderate pain distress, Patient alert and oriented to person, place and time, Nursing notes reviewed. (12:16 LLDO) HEAD: Head exam normal, Head exam included findings of head atraumatic, normocephalic. (12:19 LLDO) EYES: Eye exam normal, Eye exam included findings of eyelids normal to inspection, Pupils equally round and reactive to light, Extraocular muscles intact. (12:19 LLDO) ENT: ENT exam normal, Ear exam normal, Nose exam normal. (12:19 LLDO) NECK: Neck exam normal, Neck exam included findings of normal range of motion, Trachea midline, no meningeal signs, no tenderness. (12:19 LLDO) RESPIRATORY CHEST: Respiratory exam included findings of no respiratory distress, Breath sounds clear, No wheezing, Chest exam included findings of chest movement symmetrical, Chest expansion equal, no tenderness. (12:16 LLDO) CARDIOVASCULAR: Cardiovascular exam included findings of heart rate regular rate and rhythm, Heart sounds normal, Point of maximal impulse normal. (12:16 LLDO) ABDOMEN FEMALE: Abdominal exam included findings of abdomen tender, to the right lower quadrant, mild intensity, Bowel sounds normal, Liver normal, Spleen normal, no distension, no mass, no pulsatile masses, no peritoneal signs, Rovsing's sign absent, no inguinal hernia, no femoral hernia, no umbilical hernia, no ventral hernia, no incisional hernia. (12:16 LLDO) BACK: Back exam normal, Back exam included findings of normal inspection, range of motion normal. (12:19 LLDO) UPPER EXTREMITY: Upper extremity exam normal, Upper extremity &a-1R&a+25V*p+0X*f7896N*c202B*c15G*c2P*p-0X&a-25V&a+1R Name: Jacquelin Emanuel : 1975 F41 MedRec: [id number] AcctNum: [id number] Prepared: Bhavna Dec 05, 2016 23:51 by Interface Page 7 of 11 D [facility] EMERGENCY RECORD exam included findings of inspection normal, Range of motion normal. (12:19 LLDO) LOWER EXTREMITY: Lower extremity exam normal, Lower extremity exam included findings of inspection normal, Range of motion normal. (12:19 LLDO) NEURO: Neuro exam normal, Neuro exam findings include patient oriented to person, place and time, Speech normal, John coma scale 15. (12:19 LLDO) SKIN: Skin exam normal, Skin exam included findings of skin warm, dry, and normal in color, no rash. (12:19 LLDO) PSYCHIATRIC: Psychiatric exam normal, Psychiatric exam included findings of patient oriented to person place and time, Normal affect. (12:19 LLDO) EVENTS TRANSFER: Triage to Emergency Main ED -03. (FriDec 05, 2016 11:31 SCHI) Emergency Main ED -03 to Waiting. (14:32 JPAR) Removed from Emergency Waiting. (14:36 SCHI) DOCTOR NOTES (14:17 LLDO) TEXT: ct abdo and general w/u all totally neg. PROBLEM LIST No recorded problems DIAGNOSIS (14:19 LLDO) FINAL: PRIMARY: Lower abdominal pain, ADDITIONAL: Low back pain. DISPOSITION PATIENT: Disposition Type: Discharge, Disposition: *Discharge Home. (14:19 LLDO) Patient left the department. (14:36 SCHI) INSTRUCTION (14:23 LLDO) DISCHARGE: ABDOMINAL PAIN, UNKNOWN CAUSE, (FEMALE). FOLLOWUP: DO Man Hillary, [facility], [address] [place] [address], , Follow up with Primary Care Physician in 5 days. SPECIAL: Follow-up with your PCP. PRESCRIPTION (14:21 LLDO) Tylenol-Codeine #3: TABLET : 300 mg-30 mg : ORAL : Quantity: 1-2 Unit: tab(s) Route: ORAL Schedule: every 4 hours prn Dispense: 24 Unit: tab(s) May substitute. Refills: No Refills . NOTES: No Refills. IMAGING &a-1R&a+25V*p+0X*d0580N*c202B*c15G*c2P*p-0X&a-25V&a+1R Name: Jacquelin Emanuel : 1975 F41 MedRec: [id number] AcctNum: [id number] Prepared: FriDec 05, 2016 23:51 by Interface Page 8 of 11 pMD [facility] EMERGENCY RECORD *DISCHARGE INSTRUCTIONS RECEIPT: Image captured from scanner. (14:31 SCHI) *SUPPLY CHARGE SHEET: Image captured from scanner. (14:31 SCHI) DR OFFICE NOTES: Image captured from scanner. (14:35 SCHI) ADMIN DIGITAL SIGNATURE: SAV Malone, Leslie. (14:36 SCHI) Garcia, MD, Jaden. (23:40 LLDO) RESULTS LABORATORY: Urinalysis w/ Rflx Microscopic Collection DT: FriDec 05, 2016 11:49, Color Yellow , Range (Yellow), Clarity Clear , Range (Clear), Specific [place], Urine 1.015 , Range (1.005-1.030), pH, Urine 7.5 , Range (5.0-9.0), Leukocyte Negative , Range (Negative), Nitrite Negative , Range (Negative), Protein, Urine (Dipstick) Negative mg/dL, Range (Neg-Trace), Glucose, Urine (Dipstick) Negative mg/dL, Range (Negative), Ketone, Urine Negative mg/dL, Range (Negative), Urobilinogen 0.2 mg/dL, Range (0.2-1.0), Bilirubin Negative , Range (Negative), Blood, Urine Negative , Range (Negative). (11:56 SCHI) Test, Urine (BHCG) Collection DT: FriDec 05, 2016 11:49, Test - Urine (BHCG) NEGATIVE , Range (NEGATIVE), Method of sensitivity- Indeterminant: results should be repeated, after 48 hours. Positive: results may be detected as early as 4-5 days before a first missed menses. Elimination of BHCG-, Elimination following first trimester D&C: 29-44 Days , Elimination following term : 8-24 Days , Specific [place] 1.015 , Range (1.002-1.036), A dilute urine specimen may, not contain brewery representative levels of hCG. If is still, suspected, a first morning urine specimen OR a random blood specimen should, be obtained from the patient 48-72 hours later and re-tested. , . (11:56 SCHI) CRP (Inflammatory) Collection DT: FriDec 05, 2016 12:23, CRP (Inflammatory) Less than 0.50 mg/dL, Range (= or < 0.5). (12:53 SCHI) Lipase Collection DT: FriDec 05, 2016 12:23, Lipase 24 U/L, Range (8-78). (12:53 SCHI) &a-1R&a+25V*p+0X*u8061D*c202B*c15G*c2P*p-0X&a-25V&a+1R Name: Jacquelin Emanuel : 1975 F41 MedRec: [id number] AcctNum: [id number] Prepared: FriDec 05, 2016 23:51 by Interface Page 9 of 11 pMD [facility] EMERGENCY RECORD Amylase Collection DT: FriDec 05, 2016 12:23, Amylase 42 U/L, Range (25-125). (12:53 SCHI) Comprehensive Metabolic Panel Collection DT: FriDec 05, 2016 12:23, Sodium 142 mmol/L, Range (136-145), Potassium 4.5 mmol/L, Range (3.5-5.1), Chloride 103 mmol/L, Range (98-107), *Carbon Dioxide 30 - H mmol/L, Range (22-29), Anion Gap 14 mmol/L, Range (10-20), BUN (Urea Nitrogen) 18 mg/dL, Range (7.0-18.7), Creatinine 0.92 mg/dL, Range (0.6-1.1), Estimated GFR-MDRD 68 , Reference Range for Estimated GFR: Greater than 90, mL/min/1.73 m2 NOTE: The MDRD equation has not been validated for use, with the elderly (over 70 years of age), women, patients with, serious comorbid condition or persons with extremes of body size, muscle, mass, or nutritional status. , Glucose 88 mg/dL, Range (70-105), Calcium 9.6 mg/dL, Range (7.8-10.44), Bilirubin, Total Less than 0.3 mg/dL, Range (0.2-1.2), Protein, Total 6.8 g/dL, Range (6.0-8.3), NOTE: Plasma values are generally 0.3 to 0.5 g/dL higher than serum values, due to the presence of fibrinogen. , Albumin 4.4 g/dL, Range (3.5-5.0), Globulin 2.4 g/dL, Range (2.4-3.5), Alb/Glob Ratio 1.8 g/dL, Range (1.2-2.2), Alkaline Phosphatase 55 U/L, Range (40-150), AST (SGOT) 9 U/L, Range (5-34), ALT (SGPT) 7 U/L, Range (0-55). (12:53 SCHI) CBC with Differential Collection DT: FriDec 05, 2016 12:23, White Blood Cell (WBC) Count 8.4 thou/uL, Range (4.8-10.8), Red Blood Cell (RBC) Count 4.26 mill/uL, Range (4.20-5.40), Hemoglobin 12.9 g/dL, Range (12.0-16.0), Hematocrit 41.0 %, Range (36.0-47.0), Mean Corpuscular Volume 96.1 fl, Range (81.0-99.0), Mean Corpuscular Hemoglobin 30.4 pg, Range (27.0-31.0), *Mean Corpuscular HGB CONC 31.6 - L g/dL, Range (32.0-36.0), RBC Distribution Width 13.2 %, Range (11.5-14.5), Platelet Count 278 thou/uL, Range (130-400), Mean Platelet Volume 8.0 fL, Range (7.4-10.4), %Neutrophils 72.5 %, Range (42.0-75.0), *%Lymphocytes 19.7 - L %, Range (21.0-51.0), %Monocytes 5.4 %, Range (0.0-10.0), %Eosinophils 1.9 %, Range (0.0-10.0), %Basophils 0.5 %, Range (0.0-1.0), #Neutrophils 6.1 thou/uL, Range (1.40-6.50), #Lymphocytes 1.7 thou/uL, Range (1.20-3.40), #Monocytes 0.5 thou/uL, Range (0.11-0.59), #Eosinphils 0.2 thou/uL, Range (0.0-0.7), &a-1R&a+25V*p+0X*[id number]*c202B*c15G*c2P*p-0X&a-25V&a+1R Name: Jaqcuelin Emanuel : 1975 F41 MedRec: [id number] AcctNum: [id number] Prepared: FriDec 05, 2016 23:51 by Interface Page 10 of 11 D [facility] EMERGENCY RECORD #Basophils 0.0 thou/uL, Range (0.0-0.2). (12:53 SCHGely) Rojo: MARCO ANTONIO=LAWANDA Ruggiero, Vanita BRAN=MD Jose, Jaden JONES=SAV Queen, Leann HUDSON=SAV Malone, Leslie &a-1R&a+25V*p+0X*[id number]*c202B*c15G*c2P*p-0X&a-25V&a+1R Name: Jacquelin Emanuel : 1975 11 MedRec: [id number] AcctNum: [id number] Prepared: FriDec 05, 2016 23:51 by Interface Page 11 of 11 D [facility] MEDICATION RECONCILIATION You were seen in the Emergency Department on: FriDec 05, 2016 KNOWN ALLERGIES No Known Drug Allergies MEDICATIONS GIVEN WHILE IN THE EMERGENCY DEPARTMENT Toradol injection (ketorolac tromethamine) - Dose: 30 milligram(s) : IV Push Zofran intravenous (ondansetron HCl) - Dose: 8 milligram(s) : IV Push Bentyl oral (dicyclomine HCl) - Dose: 20 milligram(s) : Oral HOME MEDICATIONS CONTINUE PRESCRIBED Flexeril : TABLET : Strength - 5 mg : ORAL Continue as prescribed Patient had been takin mg Oral every 8 hours PRN. traMADol : TABLET : Strength - 50 mg : ORAL Continue as prescribed Patient had been takin mg Oral every 6 hours PRN. Notes from the emergency department Reviewed with family Reviewed with patient PRESCRIPTIONS (1) &a-1R&a+25V*p+0X*[id number]*c202B*c15G*c2P*p-0X&a-25V&a+1R Name: Jacquelin Emanuel Karen : 1975 F41 MedRec: [id number] AcctNum: [id number] Prepared: Bhavna Dec 05, 2016 23:51 by Interface pMD HERMELINDO
== END 2016-12-05 14:30 | disposition home or self-care (01) ==
LOC: MADERS 11:17
DX: R10.31 Right lower quadrant pain (principal); M54.5 Low back pain; Z87.891 Personal history of nicotine dependence; Z79.899 Other long term (current) drug therapy
CPT/HCPCS: 36415; 71010; 74177; 80053; 81003; 81025; 82150; 83690; 85025; 86140; 87086; 96374; 96375; J1885; J2405

== ENCOUNTER 2017-04-30 20:45 | Emergency (ER) | payer MEDICAID ==
--- NOTE | 2017-04-30 21:25 | RAD ---
LEFT FOOT THREE VIEW 04/30/17 HISTORY: Injury. COMPARISON: None. FINDINGS: There is a type II os naviculare with sclerosis on either side of the synchondrosis. There is bone i sland of the proximal phalanx of the great toe. No acute fracture or malalignment of the foot. There is a bipartite medial hallux sesamoid. Lisfranc interval appears to be maintained. IMPRESSION: No acute fracture of the foot. POS: [facility]
--- NOTE | 2017-04-30 21:26 | RAD ---
LEFT ANKLE THREE VIEW 04/30/17 HISTORY: Injury. COMPARISON: None. FINDINGS: No acute fracture or malalignment. Ankle mortise is congruent. There is minimal medial edema. IMPRESSION: No acute fracture or malalignment. POS: [facility]
[2017-04-30] MEDS ORDERED: Naproxen 500 MG TAB ONE (21:27)
== END 2017-04-30 21:34 | disposition home or self-care (01) ==
LOC: MADERS 20:45
DX: S90.32XA Contusion of left foot, initial encounter (principal); Z87.891 Personal history of nicotine dependence; W10.9XXA Fall (on) (from) unspecified stairs and steps, initial encounter

== ENCOUNTER 2017-08-27 08:16 | Outpatient (CLI) | payer MEDICAID ==
[2017-08-27 08:52] LABS: #Basophils 0.1 thou/uL (0.0-0.2); #Eosinphils 0.2 thou/uL (0.0-0.7); #Lymphocytes 1.6 thou/uL (1.20-3.40); #Monocytes 0.5 thou/uL (0.11-0.59); #Neutrophils 4.7 thou/uL (1.40-6.50); %Basophils 0.8 % (0.0-1.0); %Eosinophils 2.5 % (0.0-10.0); %Lymphocytes 22.1 % (21.0-51.0); %Monocytes 7.3 % (0.0-10.0); %Neutrophils 67.3 % (42.0-75.0); Hemoglobin 13.3 g/dL (12.0-16.0); Mean Corpuscular HGB CONC 33.9 g/dL (32.0-36.0); Mean Corpuscular Volume 91.4 fl (81.0-99.0); Mean Platelet Volume 8.8 fL (7.4-10.4); Platelet Count 282 thou/uL (130-400)
[2017-08-27 10:38] LABS: Free T4 (Free Thyroxine) 0.83 ng/dL (0.70-1.48); Thyroid Stimulating Hormone 3.4696 uIU/mL (0.35-4.94)
--- NOTE | 2017-08-27 11:12 | ULT ---
PELVIC ULTRASOUND WITH DOPPLER: (transabdominal, transvaginal, deng scale, color flow and spectral Doppler) HISTORY: A 42-year-old female with dysmenorrhea, cramping. FINDINGS: The uterus measures 9.4 x 5.7 x 4.9 cm. The endometrium measures 1.5 cm in thickness. No uterine m ass or endometrial fluid is seen. A small amount of free fluid is seen in the cul-de-sac. The right ovary measures 1.8 x 1.1 x 1 cm and the left ovary measures 2.3 x 1.7 x 2 cm. A 1 cm hypo echoic lesion is seen in the left ovary. Flow is demonstrated to the left ovary. Flow is not sati sfactorily demonstrated to the right ovary. There is an 8 mm nabothian cyst. IMPRESSION: 1. Endometrial thickness is 1.5 cm. 2. A 1 cm hypoechoic lesion in the left ovary. A followup exam in 3 months is recommended. POS: [facility]
== END 2017-08-27 08:17 | disposition home or self-care (01) ==
LOC: MADLABBHPM 08:16
PROVIDERS: ATTEND Family Medicine
DX: N94.6 Dysmenorrhea, unspecified (principal); N83.9 Noninflammatory disorder of ovary, fallopian tube and broad ligament, unspecified; R93.8 Abnormal findings on diagnostic imaging of other specified body structures
CPT/HCPCS: 36415; 76856; 84439; 84443; 85025

== ENCOUNTER 2018-01-15 13:11 | Emergency (ER) | payer MEDICAID ==
[2018-01-15 13:47] LABS: #Basophils 0.1 thou/uL (0.0-0.2); #Eosinphils 0.1 thou/uL (0.0-0.7); #Lymphocytes 1.9 thou/uL (1.20-3.40); #Monocytes 0.5 thou/uL (0.11-0.59); #Neutrophils 4.6 thou/uL (1.40-6.50); %Eosinophils 1.8 % (0.0-10.0); %Monocytes 7.3 % (0.0-10.0); %Neutrophils 63.9 % (42.0-75.0); Hemoglobin 12.5 g/dL (12.0-16.0); Mean Corpuscular HGB CONC 32.5 g/dL (32.0-36.0); Mean Corpuscular Hemoglobin 30.2 pg (27.0-31.0); Mean Corpuscular Volume 92.9 fl (81.0-99.0); Mean Platelet Volume 7.9 fL (7.4-10.4); Platelet Count 298 thou/uL (130-400); RBC Distribution Width 12.3 % (11.5-14.5); Red Blood Cell (RBC) Count 4.14 mill/uL (4.20-5.40); White Blood Cell (WBC) Count 7.3 thou/uL (4.8-10.8)
--- NOTE | 2018-01-15 14:02 | RAD ---
CHEST TWO VIEWS: HISTORY: Pain. COMPARISON: None. FINDINGS: Normal cardiac silhouette. Lungs and pleural spaces are clear. No pneumothorax or osseous abnormali ties. IMPRESSION: No acute cardiopulmonary process. POS: [facility]
[2018-01-15 14:04] LABS: ALT (SGPT) 14 U/L (8-55); AST (SGOT) 15 U/L (5-34); Albumin 4.2 g/dL (3.5-5.0); Alkaline Phosphatase 48 U/L (40-150); Anion Gap 14 mmol/L (10-20); BUN (Urea Nitrogen) 13 mg/dL (7.0-18.7); Bilirubin, Total 0.2 mg/dL (0.2-1.2); Calc. Creatinine Clearance 0 mL/min (70-130); Carbon Dioxide 24 mmol/L (22-29); Chloride 107 mmol/L (98-107); Estimated GFR-MDRD 84; Globulin 2.4 g/dL (2.4-3.5); Glucose 89 mg/dL (70-105); Potassium 4.3 mmol/L (3.5-5.1); Protein, Total 6.6 g/dL (6.0-8.3); Sodium 141 mmol/L (136-145)
[2018-01-15 14:06] LABS: CKMB 0.5 ng/mL (0-6.6); Troponin I Less than 0.010 ng/mL (< 0.028)
== END 2018-01-15 14:20 | disposition home or self-care (01) ==
LOC: MADERS 13:11
DX: R07.9 Chest pain, unspecified (principal); Z87.891 Personal history of nicotine dependence
CPT/HCPCS: 36415; 71046; 80053; 82553; 84484; 85025; 93005

== ENCOUNTER 2018-02-18 07:58 | Outpatient (CLI) | payer MEDICAID ==
--- NOTE | 2018-02-18 11:06 | ULT ---
PELVIC SONOGRAM: HISTORY: Left pelvic cyst. Followup. COMPARISON: 08/27/2017 TECHNIQUE: Transabdominal and transvaginal imaging with duplex evaluation. FINDINGS: The urinary bladder is decompressed. The uterus has a heterogeneous echotexture and is 9 cm in lengt h. The endometrium is 0.7 cm in width. Small, echogenic foci associated with the endometrium, measu ring up to 0.3 cm. Nabothian cysts are associated with the uterine cervix. No free fluid. The righ t ovary is 2.5 cm and the left is 1.9 cm. Each contains small follicles. Good color and spectral Do ppler flow are documented within the left ovary but are unable to be reliably documented within the r ight ovary due to position. IMPRESSION: 1. Small ovarian follicles. No aggressive lesions are evident. 2. Tiny echogenic foci associated with the endometrium most likely represent small calcifications an d are most commonly associated with benign conditions, such as endometrial polyps or atrophy. POS: [facility]
== END 2018-02-18 07:59 | disposition home or self-care (01) ==
LOC: MADRAD 07:58
PROVIDERS: ATTEND Family Medicine
DX: N83.202 Unspecified ovarian cyst, left side (principal)
CPT/HCPCS: 76856

== ENCOUNTER 2019-10-09 16:22 | Emergency (ER) | payer MEDICAID, SELFPAY ==
--- NOTE | 2019-10-09 17:16 | CT ---
CT Brain WO Con History: Headache Comparison: None. Findings: No acute hemorrhage or infarct. No midline shift or mass effect. Ventricular size and extra -axial CSF spaces are normal. Calvarium is intact. Paranasal sinuses and mastoids are clear. Small choroid plexus calcification of the fourth ventricle. Impression: No acute intracranial abnormality.
[2019-10-09 17:31] LABS: #Basophils 0.1 thou/uL (0.0-0.2); #Eosinphils 0.1 thou/uL (0.0-0.7); #Lymphocytes 1.5 thou/uL (1.20-3.40); #Monocytes 0.8 thou/uL (0.11-0.59); #Neutrophils 8.2 thou/uL (1.40-6.50); %Basophils 0.8 % (0.0-1.0); %Eosinophils 1.4 % (0.0-10.0); %Lymphocytes 13.9 % (21.0-51.0); %Monocytes 7.3 % (0.0-10.0); %Neutrophils 76.6 % (42.0-75.0); Hemoglobin 12.9 g/dL (12.0-16.0); Mean Corpuscular HGB CONC 32.5 g/dL (32.0-36.0); Mean Corpuscular Hemoglobin 29.6 pg (27.0-31.0); Mean Platelet Volume 7.1 fL (7.4-10.4); Platelet Count 348 thou/uL (130-400); RBC Distribution Width 11.8 % (11.5-14.5); Red Blood Cell (RBC) Count 4.37 mill/uL (4.20-5.40); White Blood Cell (WBC) Count 10.7 thou/uL (4.8-10.8)
[2019-10-09 17:48] LABS: ALT (SGPT) 16 U/L (8-55); AST (SGOT) 15 U/L (5-34); Albumin 4.1 g/dL (3.5-5.0); Alkaline Phosphatase 53 U/L (40-110); Anion Gap 16 mmol/L (10-20); BUN (Urea Nitrogen) 10 mg/dL (7.0-18.7); Bilirubin, Total 0.2 mg/dL (0.2-1.2); Calc. Creatinine Clearance 0 mL/min (70-130); Calcium 9.3 mg/dL (7.8-10.44); Carbon Dioxide 22 mmol/L (22-29); Chloride 106 mmol/L (98-107); Estimated GFR-MDRD 70; Globulin 2.4 g/dL (2.4-3.5); Glucose 95 mg/dL (70-105); Potassium 4.3 mmol/L (3.5-5.1); Protein, Total 6.5 g/dL (6.0-8.3); Sodium 140 mmol/L (136-145)
== END 2019-10-09 18:34 | disposition home or self-care (01) ==
LOC: MADERS 16:22
DX: G43.919 Migraine, unspecified, intractable, without status migrainosus (principal); F41.1 Generalized anxiety disorder; E03.9 Hypothyroidism, unspecified; Z87.891 Personal history of nicotine dependence; Z79.899 Other long term (current) drug therapy
CPT/HCPCS: 36415; 70450; 80053; 84443; 85025

== ENCOUNTER 2024-12-22 20:37 | Emergency (ER) | payer OTHER, SELFPAY ==
[2024-12-22] MEDS ORDERED: HYDROcodone/Acetaminophen 5/325 mg Tablet ONE (21:11)
== END 2024-12-22 21:53 | disposition home or self-care (01) ==
LOC: MADERS 20:37
DX: S32.2XXA Fracture of coccyx, initial encounter for closed fracture (principal); Z87.891 Personal history of nicotine dependence; W01.0XXA Fall on same level from slipping, tripping and stumbling without subsequent striking against object, initial encounter
CPT/HCPCS: 72220; 99283